=== PATIENT | male | born 1935 | race Caucasian/White ===

== ENCOUNTER 2017-03-06 23:03 | Emergency (ER) | payer OTHER, MEDICARE ==
[~2017-03-06 23:03] MED LIST: ASPIRIN ADULT L81 M1 PO; COZAAR100 MG PO; DONEPEZIL HCL5 M1 PO; FISH OIL1200 MG; HYDROCHLOROTHIA25 MG PO; KEFLEX750 MG PO; MULTIPLE VITAMIN PO; NAMENDA5 MG PO; NORCO1 TA1 PO; PLAVIX75 MG PO; STOOL SOFTENER1 TA1; TAMSULOSIN HCL0.4 MG PO; VISTARIL25 MG PO; VITAMIN D-31000 UNIT PO
--- NOTE | 2017-03-07 02:30 | ED ORDER SUMMARY ---
..... Patient: MOR WRIGHT OrderSheet [facility] VisitID: [id number] [place] [address] 81y, M Registration Date/Time: 03/06/2017 ORDER SHEET Weight: 88.4 kg (stated) Allergies: Azithromycin GENERAL ORDERS: CBC w Diff Urgent (01:03/07/2017 Lemuel Pierson) (Ack 1:05 Maricruz) (1:14 Miguelito R.N.) CMP Urgent (01:03/07/2017 Lemuel Pierson) (Ack 1:05 Maricruz) (1:14 Miguelito R.N.) UA-Culture if indicated Urgent (:03/07/2017 Lemuel Pierson) (Ack 1:05 Maricruz) (1:14 Miguelito R.N.) Amylase Urgent (01:03/07/2017 Lemuel Pierson) (Ack 1:05 Maricruz) (1:14 Yadielier R.N.) Lipase Urgent (01:03/07/2017 Lemuel Pierson) (Ack 1:05 Maricruz) (1:14 Miguelito R.N.) Abdomen 1V Urgent (02:12 03/07/2017 Lemuel Pierson) (Ack 2:14 Maricruz) (2:30 GUnger) MEDICATION ORDERS: IV FLUIDS: IV Saline Lock (:03/07/2017 Lemuel Pierson) (Ack 1:01 Miguelito R.N.) ORDER SHEET NOTES: [Electronically signed by Janette Sellers R.N. (02:43 03/07/2017)] [Electronically signed by Koffi Solis Dr. (05:54 03/08/2017)] [Electronically locked/signed by Janette Sellers R.N. (02:43 03/07/2017)]
--- NOTE | 2017-03-07 02:30 | ED NURSING NOTES ---
Clinical Report - Nurses [place] [place] [address] 03/06/2017 23:03 Patient: MOR WRIGHT TRIAGE Triage time 23:26. Chief Complaint: (Abdominal pressure and increasing back pain). --23:41 Jorge Luis Rojas R.N. 23:26 03/06/17. BP: 132. HR: 79. RR: 14. O2 saturation: 99%. Temp: 98.2 F. --23:41 Jorge Luis Rojas R.N. Weight: 88.4 kg stated. Height/Length: 68 inches Per Patient. BMI: 29.6. --00:56 Janette Sellers R.N. Medications Losartan Potassium Oral (Tablet 100 mg) 1 tablet, daily. --23:29 Janette Sellers R.N. Hydrochlorothiazide Oral (Tablet 25 mg) 1 tablet, daily. --23:30 Janette Sellers R.N. AmLODIPine Besylate Oral (Tablet 10 mg) 1 tablet, daily. --23:30 Janette Sellers R.N. Plavix Oral 75 mg, daily. --23:31 Janette Sellers R.N. Vitamin D Oral (Capsule 1000 unit) 1 capsule, daily. --23:32 Janette Sellers R.N. Multi Vitamin Mens Oral. --23:32 Jorge Luis Rojas R.N. Fish Oil Oral. --23:33 Jorge Luis Rojas R.N. Atorvastatin Calcium Oral (Tablet 80 mg) 1 tablet, daily. --23:33 Janette Sellers R.N. Flomax Oral (Capsule 0.4 mg) 1 capsule, daily. --23:33 Janette Sellers R.N. Donepezil HCl Oral (Tablet 5 mg) 1/2 tablet, daily. --23:33 Janette Sellers R.N. Namenda Oral (Tablet 5 mg) 1 tablet, 2x a day. --23:33 Janette Sellers R.NNiles PriLOSEC Oral 10 mg, daily. --00:55 Janette Sellers R.N. The following entry was struck and corrected by Janette Sellers R.N., 00:54 (03/07/17) Reason for correction - other(correction). <<[facility] ENTRY-- Namenda Oral. --23:33 Jorge Luis Rojas R.N. --END STRIKE>> The following entry was struck and corrected by Janette Sellers R.N., 00:54 (03/07/17) Reason for correction - other(correction). <<[facility] ENTRY-- Donepezil HCl Oral. --23:33 Jorge Luis Rojas R.N. --END STRIKE>> The following entry was struck and corrected by Janette Sellers R.N., 00:54 (03/07/17) Reason for correction - other(correction). <<[facility] ENTRY-- Flomax Oral. --23:33 Jorge Luis Rojas R.N. --END STRIKE>> The following entry was struck and corrected by Janette Sellers R.N., 00:53 (03/07/17) Reason for correction - other(correction). <<[facility] ENTRY-- Atorvastatin Calcium Oral. --23:33 Jorge Luis Rojas R.N. --END STRIKE>> The following entry was struck and corrected by Janette Sellers RNilesN., 00:53 (03/07/17) Reason for correction - other(correction). <<[facility] ENTRY-- Vitamin D Oral. --23:32 Jorge Luis Rojas R.N. --END STRIKE>> The following entry was struck and corrected by Janette Sellers R.N., 00:53 (03/07/17) Reason for correction - other(correction). <<[facility] ENTRY-- Plavix Oral. --23:31 Jorge Luis Rojas R.N. --END STRIKE>> The following entry was struck and corrected by Janette Sellers R.N., 00:53 (03/07/17) Reason for correction - other(correction). <<[facility] ENTRY-- AmLODIPine Besylate Oral. --23:30 Jorge Luis Rojas R.N. --END STRIKE>> The following entry was struck and corrected by Janette Sellers R.N., 00:53 (03/07/17) Reason for correction - other(correction). <<[facility] ENTRY-- Hydrochlorothiazide Oral. --23:30 Jorge Luis Rojas R.N. --END STRIKE>> The following entry was struck by Janette Sellers R.N., 00:52 (03/07/17) Reason - other(pt stopped taking). <<[facility] ENTRY-- Aspirin Oral. --23:29 Jorge Luis Rojas R.N. --END STRIKE>> The following entry was struck and corrected by Janette Sellers R.N., 00:52 (03/07/17) Reason for correction - other(correction). <<[facility] ENTRY-- Losartan Potassium Oral. --23:29 Jorge Luis Rojas R.N. --END STRIKE>>. Allergies Azithromycin. --23:40 Jorge Luis Rojas R.N. History Arrived by private vehicle. Historian: spouse. Accompanied by family. This started today. Onset. (7 hours). 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 PAST MEDICAL HX: Hypertension (7 years). ( History CVA 2009, BPH, hernia repair). SOCIAL HX: Former smoker, end date 1958. NUTRITIONAL RISK ASSESSMENT: The nutritional risk assessment revealed no deficiencies. LEARNING NEEDS ASSESSMENT: The learning needs assessment revealed no barriers. FALL RISK ASSESSMENT: Fall risk assessment completed. Risk factors identified include patient age greater than 65 years and impairment of hearing. --23:41 Jorge Luis Rojas R.N. PAST MEDICAL HX: Immunizations: up-to-date. SOCIAL HX: Never smoker. No alcohol use or drug use. --00:56 Janette Sellers R.N. PROBLEMS: Gastroesophageal Reflux Disease. CVA - Cerebrovascular Accident. --00:55 Janette Sellers R.N. ADDITIONAL SURGERIES: Hernia Repair. --00:55 Janette Sellers R.N. Interventions ID band on patient. --23:41 Jorge Luis Rojas R.N. PHYSICAL ASSESSMENT Ambulatory to room. Patient gowned. GENERAL / NEURO / PSYCH: Alert. Oriented X 4. Appears in no acute distress. HEENT: Mucous membranes are pink. CVS: Capillary refill less than 2 seconds. SKIN: Skin is warm and dry. --00:56 Janette Sellers R.N. NURSING PROGRESS NOTES Head of bed elevated. Two patient identifiers checked. Call light placed in reach. Side rails up x 1. Bed placed in lowest position. Brakes of bed on. --00:56 Janette Sellers R.N. Patient ready for evaluation- chart flagged. --00:56 Janette Sellers R.N. 01:00. Patient ID band checked for patient name and birthdate: patient confirmed urine collected with return of yellow-colored clear urine; sample sent to lab. Specimen labeled in the presence of the patient. --01:14 Janette Sellers R.N. 01:14 03/07/2017 Site #1 started via IV in the right antecubital space with an 20g angiocath, with aseptic technique and good blood return; one attempt. Blood drawn: rainbow set. Labeled in the presence of the patient and sent to the lab. Saline lock flushed with 10 mL saline. --01:14 Janette Sellers R.N. 02:35 03/07/2017 Site #1 removed upon discharge. Catheter intact. Manual pressure and bandage applied. --02:41 Janette Sellers R.N. DISPOSITION / DISCHARGE Condition at departure: stable. No learning barriers present. Discharge instructions provided and reviewed with the patient. Reviewed medication(s) side effects, precautions, dosing and course information. Prescription(s) given to the patient (Miralax). Patient verbalized understanding. Written instructions provided in Romanian. The patient was discharged home and accompanied by spouse. He left the Emergency Department ambulatory and via private vehicle. Spouse driving. --02:42 Janette Sellers R.N. 02:42 03/07/17. BP: 137/67. HR: 82. RR: 15. O2 saturation: 97% on room air. Temp: deferred. Beckman-Navarro pain scale: 10/05. --02:42 Janette Sellers R.N. Locked/Released at 03/07/2017 2:43 by Janette Sellers R.N.
--- NOTE | 2017-03-07 02:30 | ED ORDER SUMMARY ---
..... Patient: MOR WRIGHT OrderSheet [facility] VisitID: [id number] [place] [address] 81y, M Registration Date/Time: 03/06/2017 ORDER SHEET Weight: 88.4 kg (stated) Allergies: Azithromycin GENERAL ORDERS: CBC w Diff Urgent (01:03/07/2017 Lemuel Pierson) (Ack 1:05 Maricruz) (1:14 Miguelito R.N.) CMP Urgent (01:03/07/2017 Lemuel Pierson) (Ack 1:05 Maricruz) (1:14 Miguelito R.N.) UA-Culture if indicated Urgent (:03/07/2017 Lemuel Pierson) (Ack 1:05 Maricruz) (1:14 Miguelito R.N.) Amylase Urgent (01:03/07/2017 Lemuel Pierson) (Ack 1:05 Maricruz) (1:14 Yadielier R.N.) Lipase Urgent (01:03/07/2017 Lemuel Pierson) (Ack 1:05 Maricruz) (1:14 Miguelito R.N.) Abdomen 1V Urgent (02:12 03/07/2017 Lemuel Pierson) (Ack 2:14 Maricruz) (2:30 GUnger) MEDICATION ORDERS: IV FLUIDS: IV Saline Lock (:03/07/2017 Lemuel Pierson) (Ack 1:01 Miguelito R.N.) ORDER SHEET NOTES: [Electronically signed by Janette Sellers R.N. (02:43 03/07/2017)] [Electronically signed by Koffi Solis Dr. (05:54 03/08/2017)] [Electronically locked/signed by Janette Sellers R.N. (02:43 03/07/2017)]
--- NOTE | 2017-03-07 02:30 | ED CLINICAL REPORT ---
Clinical Report - Physicians/Mid Levels [facility] [address] [place] [address] 03/06/2017 23:03 Patient: MOR WRIGHT Time Seen: 00:19; initial patient contact. Arrived- By private vehicle. Historian- patient. HISTORY OF PRESENT ILLNESS Chief Complaint: ABDOMINAL PAIN. At its maximum, severity described as mild. When seen in the E.D., severity described as mild. Modifying factors. Not worsened by anything. Not relieved by anything. It is described as cramping. No radiation. It is described as generalized in location. This started yesterday and is still present. The patient has had nausea and loss of appetite. No vomiting or diarrhea. Similar symptoms previously: None. Recent medical care: Not recently seen/assessed. REVIEW OF SYSTEMS The patient has had constipation. No fever or chills. All systems otherwise negative, except as recorded above. PAST HISTORY Gastroesophageal Reflux Disease. CVA - Cerebrovascular Accident. ADDITIONAL SURGERIES: Hernia Repair. Medications: PriLOSEC Oral 10 mg, daily. Namenda Oral (Tablet 5 mg) 1 tablet, 2x a day. Donepezil HCl Oral (Tablet 5 mg) 1/2 tablet, daily. Flomax Oral (Capsule 0.4 mg) 1 capsule, daily. Atorvastatin Calcium Oral (Tablet 80 mg) 1 tablet, daily. Fish Oil Oral. Multi Vitamin Mens Oral. Vitamin D Oral (Capsule 1000 unit) 1 capsule, daily. Plavix Oral 75 mg, daily. AmLODIPine Besylate Oral (Tablet 10 mg) 1 tablet, daily. Hydrochlorothiazide Oral (Tablet 25 mg) 1 tablet, daily. Losartan Potassium Oral (Tablet 100 mg) 1 tablet, daily. Allergies: Azithromycin. SOCIAL HISTORY Former smoker. ADDITIONAL NOTES The nursing notes have been reviewed. PHYSICAL EXAM Vital Signs: 03/06/2017 23:26 BP: 132. HR: 79. RR: 14. O2 saturation: 99%. Temp: 98.2 F. Have been reviewed as normal. Appearance: Alert. Oriented X3. No acute distress. ENT: Pharynx normal. CVS: Normal heart rate and rhythm. Heart sounds normal. Respiratory: No respiratory distress. Breath sounds normal. Abdomen: Soft and nontender. Bowel sounds normal. No organomegaly. No mass. Distention with tympany to percussion and dullness to percussion. Back: Normal inspection. No CVA tenderness. Skin: Normal skin color. Extremities: No lower extremity edema. LABS, X-RAYS, AND EKG KUB: Increased stool present. Views: erect AP. Technique: good. The X-rays were independently viewed by me and interpreted contemporaneously by me. Prior films were not available for comparison. Laboratory Tests: UA-Culture if indicated: (MELANY: 03/07/2017 00:55) ( [facility] [place]:13) Final results Test Result Flag Units (Reference) URINE COLOR YELLOW URINE APPEARANCE CLEAR URINE GLUCOSE NEGATIVE (NEGATIVE) URINE BILIRUBIN NEGATIVE (NEGATIVE) URINE KETONE NEGATIVE (NEGATIVE) URINE SPECIFIC GRAVITY 1.015 (1.010-1.030) URINE PH 6.0 (5.0-8.0) URINE PROTEIN NEGATIVE (NEGATIVE) URINE UROBILINOGEN 0.2 EU/dL (0.2-1.0) URINE NITRITE NEGATIVE (NEGATIVE) URINE BLOOD NEGATIVE (NEGATIVE) URINE LEUK ESTERASE NEGATIVE (NEGATIVE) URINE RBC 0-1 rbc/hpf (0-1) URINE WBC 0-1 wbc/hpf (0-1) URINE EPITHELIAL CELLS 0-1 EPI/hpf (0-5) URINE BACTERIA NONE SEEN (NONE SEEN) URINE COMMENT CULT NOT INDICATED URINE CULTURES ARE SET-UP BASED ON THE FOLLOWING CRITERIA:POSITIVE NITRITEPOSITIVE LEUKOCYTE ESTERASEGREATER THAN 10 WHITE BLOOD CELLSMODERATE (2+) OR GREATER BACTERIA CBC w Diff: (MELANY: 03/07/2017 01:10) ( [facility] [place] 03/07/[place] 01:17) Final results Test Result Flag Units (Reference) WHITE BLOOD COUNT 9.6 K/uL (4.5-11.5) RED BLOOD COUNT 4.47 L M/uL (4.50-5.90) HEMOGLOBIN 13.9 gm/dL (13.5-17.5) HEMATOCRIT 41.1 % (41.0-53.0) MEAN CELL VOLUME 92 fL (80-100) MEAN CORPUSCULAR HGB 31 pg (26-34) MEAN CORPUSCULAR HGB CONC 34 g/dL (31-37) RED CELL DISTRIBUTION WIDTH 13.2 % (11.6-14.8) PLATELET COUNT 155 K/uL (150-400) NEUTROPHIL % 88.1 H % (50-75) LYMPH % 8.2 L % (25-40) MONO % 2.7 L % (3-14) EOSINOPHIL % 0.7 % (0-4) BASOPHIL % 0.3 % (0-2) CMP: (MELANY: 03/07/2017 01:10) ( [place] 03/07/2017 01:31) Final results Test Result Flag Units (Reference) GLUCOSE 161 H mg/dL (70-110) BUN 27 H mg/dL (7-18) CREATININE 2.0 H mg/dL (0.6-1.3) Estimated GFR 34.25 mL/min Estimated GFR- 41.51 mL/min Note: Persistent reduction over 3 months in eGFR<60 mL/min/1.73 m2 defines CKD. Patients with eGFR values>=60 mL/min/1.73 m2 may also have CKD if evidence ofpersistent proteinuria. Additional information may be foundat www.kidney.org. SODIUM 144 mmol/L (136-145) POTASSIUM 3.5 mmol/L (3.5-5.1) CHLORIDE 106 mmol/L (98-107) CARBON DIOXIDE 27 mmol/L (21-32) CALCIUM 8.7 mg/dL (8.5-10.1) TOTAL PROTEIN 7.6 g/dL (6.4-8.2) ALBUMIN 4.2 g/dL (3.3-5.0) BILIRUBIN, TOTAL 0.9 mg/dL (0.0-1.0) ALKALINE PHOSPHATASE 103 U/L (46-116) AST (SGOT) 22 U/L (15-37) ALT (SGPT) 26 U/L (12-78) LIPASE 532 H U/L (73-393) AMYLASE 87 U/L (25-115) . PROGRESS AND PROCEDURES Course of Care: Lipase mildly elevated, no S/S of pancreatitis. Disposition: Discharged home in good condition. Condition: good. CLINICAL IMPRESSION Constipation INSTRUCTIONS (Fleet's enema). Your Current Medications: CONTINUE TAKING THE FOLLOWING MEDICATIONS: AmLODIPine Besylate Oral : Tablet 10 mg, 1 tablet daily. Atorvastatin Calcium Oral : Tablet 80 mg, 1 tablet daily. Donepezil HCl Oral : Tablet 5 mg, 1/2 tablet daily. Fish Oil Oral. Flomax Oral : Capsule 0.4 mg, 1 capsule daily. Hydrochlorothiazide Oral : Tablet 25 mg, 1 tablet daily. Losartan Potassium Oral : Tablet 100 mg, 1 tablet daily. Multi Vitamin Mens Oral. Namenda Oral : Tablet 5 mg, 1 tablet 2x a day. Plavix Oral : 75 mg daily. PriLOSEC Oral : 10 mg daily. Vitamin D Oral : Capsule 1000 unit, 1 capsule daily. Prescription Medications: Miralax: take 1 package mixed in 8 ounces water or juice as needed for constipation. Dispense one (1) twelve pack. No refills. Substitution is permissible. Follow-up: Follow up with your doctor in about four days if not better. Call for an appointment. Blood pressure screening was not performed during this visit because the patient has an active diagnosis of hypertension. (Electronically signed by Koffi Solis Dr. 03/08/2017 5:54)
--- NOTE | 2017-03-07 02:30 | ED NURSING NOTES ---
Clinical Report - Nurses [place] [place] [place] [address] 03/06/2017 23:03 Patient: MOR WRIGHT TRIAGE Triage time 23:26. Chief Complaint: (Abdominal pressure and increasing back pain). --23:41 Jorge Luis Rojas R.N. 23:26 03/06/17. BP: 132. HR: 79. RR: 14. O2 saturation: 99%. Temp: 98.2 F. --23:41 Jorge Luis Rojas R.N. Weight: 88.4 kg stated. Height/Length: 68 inches Per Patient. BMI: 29.6. --00:56 Janette Sellers R.N. Medications Losartan Potassium Oral (Tablet 100 mg) 1 tablet, daily. --23:29 Janette Sellers R.N. Hydrochlorothiazide Oral (Tablet 25 mg) 1 tablet, daily. --23:30 Janette Sellers R.N. AmLODIPine Besylate Oral (Tablet 10 mg) 1 tablet, daily. --23:30 Janette Sellers R.N. Plavix Oral 75 mg, daily. --23:31 Janette Sellers R.N. Vitamin D Oral (Capsule 1000 unit) 1 capsule, daily. --23:32 Janette Sellers R.N. Multi Vitamin Mens Oral. --23:32 Jorge Luis Rojas R.N. Fish Oil Oral. --23:33 Jorge Luis Rojas R.N. Atorvastatin Calcium Oral (Tablet 80 mg) 1 tablet, daily. --23:33 Janette Sellers R.N. Flomax Oral (Capsule 0.4 mg) 1 capsule, daily. --23:33 Janette Sellres R.N. Donepezil HCl Oral (Tablet 5 mg) 1/2 tablet, daily. --23:33 Janette Sellers R.N. Namenda Oral (Tablet 5 mg) 1 tablet, 2x a day. --23:33 Janette Sellers R.NNiles PriLOSEC Oral 10 mg, daily. --00:55 Janette Sellers R.N. The following entry was struck and corrected by Janette Sellers R.N., 00:54 (03/07/17) Reason for correction - other(correction). <<[facility] ENTRY-- Namenda Oral. --23:33 Jorge Luis Rojas R.N. --END STRIKE>> The following entry was struck and corrected by Janette Sellers R.N., 00:54 (03/07/17) Reason for correction - other(correction). <<[facility] ENTRY-- Donepezil HCl Oral. --23:33 Jorge Luis Rojas R.N. --END STRIKE>> The following entry was struck and corrected by Janette Sellers R.N., 00:54 (03/07/17) Reason for correction - other(correction). <<[facility] ENTRY-- Flomax Oral. --23:33 Jorge Luis Rojas R.N. --END STRIKE>> The following entry was struck and corrected by Janette Sellers R.N., 00:53 (03/07/17) Reason for correction - other(correction). <<[facility] ENTRY-- Atorvastatin Calcium Oral. --23:33 Jorge Luis Rojas R.N. --END STRIKE>> The following entry was struck and corrected by Janette Sellers RNilesN., 00:53 (03/07/17) Reason for correction - other(correction). <<[facility] ENTRY-- Vitamin D Oral. --23:32 Jorge Luis Rojas R.N. --END STRIKE>> The following entry was struck and corrected by Janette Sellers R.N., 00:53 (03/07/17) Reason for correction - other(correction). <<[facility] ENTRY-- Plavix Oral. --23:31 Jorge Luis Rojas R.N. --END STRIKE>> The following entry was struck and corrected by Janette Sellers R.N., 00:53 (03/07/17) Reason for correction - other(correction). <<[facility] ENTRY-- AmLODIPine Besylate Oral. --23:30 Jorge Luis Rojas R.N. --END STRIKE>> The following entry was struck and corrected by Janette Sellers R.N., 00:53 (03/07/17) Reason for correction - other(correction). <<[facility] ENTRY-- Hydrochlorothiazide Oral. --23:30 Jorge Luis Rojas R.N. --END STRIKE>> The following entry was struck by Janette Sellers R.N., 00:52 (03/07/17) Reason - other(pt stopped taking). <<[facility] ENTRY-- Aspirin Oral. --23:29 Jorge Luis Rojas R.N. --END STRIKE>> The following entry was struck and corrected by Janette Sellers R.N., 00:52 (03/07/17) Reason for correction - other(correction). <<[facility] ENTRY-- Losartan Potassium Oral. --23:29 Jorge Luis Rojas R.N. --END STRIKE>>. Allergies Azithromycin. --23:40 Jorge Luis Rojas R.N. History Arrived by private vehicle. Historian: spouse. Accompanied by family. This started today. Onset. (7 hours). 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 PAST MEDICAL HX: Hypertension (7 years). ( History CVA 2009, BPH, hernia repair). SOCIAL HX: Former smoker, end date 1958. NUTRITIONAL RISK ASSESSMENT: The nutritional risk assessment revealed no deficiencies. LEARNING NEEDS ASSESSMENT: The learning needs assessment revealed no barriers. FALL RISK ASSESSMENT: Fall risk assessment completed. Risk factors identified include patient age greater than 65 years and impairment of hearing. --23:41 Jorge Luis Rojas R.N. PAST MEDICAL HX: Immunizations: up-to-date. SOCIAL HX: Never smoker. No alcohol use or drug use. --00:56 Janette Sellers R.N. PROBLEMS: Gastroesophageal Reflux Disease. CVA - Cerebrovascular Accident. --00:55 Janette Sellers R.N. ADDITIONAL SURGERIES: Hernia Repair. --00:55 Janette Sellers R.N. Interventions ID band on patient. --23:41 Jorge Luis Rojas R.N. PHYSICAL ASSESSMENT Ambulatory to room. Patient gowned. GENERAL / NEURO / PSYCH: Alert. Oriented X 4. Appears in no acute distress. HEENT: Mucous membranes are pink. CVS: Capillary refill less than 2 seconds. SKIN: Skin is warm and dry. --00:56 Janette Sellers R.N. NURSING PROGRESS NOTES Head of bed elevated. Two patient identifiers checked. Call light placed in reach. Side rails up x 1. Bed placed in lowest position. Brakes of bed on. --00:56 Janette Sellers R.N. Patient ready for evaluation- chart flagged. --00:56 Janette Sellers R.N. 01:00. Patient ID band checked for patient name and birthdate: patient confirmed urine collected with return of yellow-colored clear urine; sample sent to lab. Specimen labeled in the presence of the patient. --01:14 Janette Sellers R.N. 01:14 03/07/2017 Site #1 started via IV in the right antecubital space with an 20g angiocath, with aseptic technique and good blood return; one attempt. Blood drawn: rainbow set. Labeled in the presence of the patient and sent to the lab. Saline lock flushed with 10 mL saline. --01:14 Janette Sellers R.N. 02:35 03/07/2017 Site #1 removed upon discharge. Catheter intact. Manual pressure and bandage applied. --02:41 Janette Sellers R.N. DISPOSITION / DISCHARGE Condition at departure: stable. No learning barriers present. Discharge instructions provided and reviewed with the patient. Reviewed medication(s) side effects, precautions, dosing and course information. Prescription(s) given to the patient (Miralax). Patient verbalized understanding. Written instructions provided in Guinean. The patient was discharged home and accompanied by spouse. He left the Emergency Department ambulatory and via private vehicle. Spouse driving. --02:42 Janette Sellers R.N. 02:42 03/07/17. BP: 137/67. HR: 82. RR: 15. O2 saturation: 97% on room air. Temp: deferred. Beckman-Navarro pain scale: 10/05. --02:42 Janette Sellers R.N. Locked/Released at 03/07/2017 2:43 by Janette Sellers R.N.
--- NOTE | 2017-03-07 06:50 | DIAGNOSTIC IMAGING REPORT ---
PROCEDURE: XR ABDOMEN 1 VIEW INDICATION: ABDOMINAL DISTENTION TECHNIQUE: Single view upright abdomen. COMPARISON: None. FINDINGS: No free intraperitoneal air. Nonspecific, nonobstructive bowel gas pattern. Mildly increased amount of proximal colonic stool. Questionable left lower pole intrarenal calcification measuring approximately 6 mm. Mild degenerative disc and endplate changes throughout the lumbar spine. No unusual mass effect. IMPRESSION: 1. Increased amount of proximal colon stool. 2 possible left intrarenal calcification. 3. Nonspecific bowel gas pattern. Distended fluid-filled loops of small bowel cannot be excluded.
--- NOTE | 2017-03-08 05:54 | ED DISCHARGE INSTRUCTIONS ---
Patient: MOR WRIGHT General Instructions [facility] VisitID: [id number] [place] [address] 81y, M Registration Date/Time: 03/06/2017 Constipation INSTRUCTIONS (Fleet's enema). Your Current Medications: CONTINUE TAKING THE FOLLOWING MEDICATIONS: AmLODIPine Besylate Oral : Tablet 10 mg, 1 tablet daily. Atorvastatin Calcium Oral : Tablet 80 mg, 1 tablet daily. Donepezil HCl Oral : Tablet 5 mg, 1/2 tablet daily. Fish Oil Oral. Flomax Oral : Capsule 0.4 mg, 1 capsule daily. Hydrochlorothiazide Oral : Tablet 25 mg, 1 tablet daily. Losartan Potassium Oral : Tablet 100 mg, 1 tablet daily. Multi Vitamin Mens Oral. Namenda Oral : Tablet 5 mg, 1 tablet 2x a day. Plavix Oral : 75 mg daily. PriLOSEC Oral : 10 mg daily. Vitamin D Oral : Capsule 1000 unit, 1 capsule daily. Prescription Medications: Miralax: take 1 package mixed in 8 ounces water or juice as needed for constipation. Dispense one (1) twelve pack. No refills. Substitution is permissible. Follow-up: Follow up with your doctor in about four days if not better. Call for an appointment. Blood pressure screening was not performed during this visit because the patient has an active diagnosis of hypertension. ADDITIONAL INFORMATION Constipation (Adult) Constipation is bowel movements that are less frequent than usual. Stools often become very hard and difficult to pass. This may lead to abdominal pain and bloating. It may also cause painful bowel movements. Constipation may be due to a diet thats low in fiber. Some medications, especially pain medications, can also cause it. Constipation may be treated with enemas, suppositories, laxatives or stool softeners. Your doctor will advise you which will work best for you. Follow the advice below to help avoid this problem in the future. Home Care Medication: Take any medicines as directed. Some laxatives are safe only for occasional use. Others can be taken on a regular basis. Talk to your doctor or pharmacist if you have questions. General Care: Prescription pain medications can cause constipation. If you are prescribed pain medications, ask the doctor whether you should also take a stool softener. A diet high in fiber with plenty of fluids helps to maintain regular, soft bowel movements. The following foods are good sources of dietary fiber: Cereals and breads: Whole grain cereal with bran, oatmeal, rolled oats, whole grain breads Fruits: All fruits (fresh and dried), raisins, prunes, apricots, berries, figs Vegetables: Any fresh vegetables, especially peas, broccoli, brussels sprouts, winter squash, green beans, cauliflower, lora beans, carrots Other: Popcorn, brown rice Drink plenty of water when you increase the amount of fiber you eat. Follow Up with your doctor or return to this facility if symptoms do not improve in the next few days. You may require further tests or a referral to a specialist. Get Prompt Medical Attention if any of the following occur: Fever over 100.4F (38C) Failure to resume normal bowel movements Increasing abdominal or back pain Nausea or vomiting Abdominal swelling Blood in the stool Weakness, dizziness or fainting Unexpected vaginal bleeding You have been given the following additional information: Constipation (Adult) (Electronically signed by Koffi Solis Dr. 03/08/2017 5:54)
--- NOTE | 2017-03-08 05:54 | ED MAR SUMMARY ---
..... Medication Administration Record [facility] [address] [place], [place] [id number] Patient: MOR WRIGHT Rafy Visit ID: [id number] 81y, M Weight: 88.4 kg Height/Length: 68 in BMI: 29.6 ALLERGIES: Azithromycin
--- NOTE | 2017-03-08 05:54 | ED MED RECONCILIATION SUMMARY ---
Patient: MOR WRIGHT Medication Reconciliation Report [facility] VisitID: [id number] [place] [address] 81y, M Registration Date/Time: 03/06/2017 Weight: 88.4 kg Height/Length: 68 in. BMI: 29.6 ALLERGIES: Azithromycin The patient's Home Medications are listed below: CONTINUE TAKING THE FOLLOWING MEDICATIONS: AmLODIPine Besylate Oral (10 mg) 1 tablet, daily Atorvastatin Calcium Oral (80 mg) 1 tablet, daily Donepezil HCl Oral (5 mg) 1/2 tablet, daily Fish Oil Oral Flomax Oral (0.4 mg) 1 capsule, daily Hydrochlorothiazide Oral (25 mg) 1 tablet, daily Losartan Potassium Oral (100 mg) 1 tablet, daily Multi Vitamin Mens Oral Namenda Oral (5 mg) 1 tablet, 2x a day Plavix Oral 75 mg, daily PriLOSEC Oral 10 mg, daily Vitamin D Oral (1000 unit) 1 capsule, daily The source(s) of the original Home Medication information: Not obtained. The following Medications were given to the patient in the Emergency Department: None. The following Medications were prescribed to the patient: Miralax: take 1 package mixed in 8 ounces water or juice as needed for constipation. Dispense one (1) twelve pack. No refills. Substitution is permissible. -- Koffi Solis Dr.
--- NOTE | 2017-03-08 05:54 | ED MED RECONCILIATION SUMMARY ---
Patient: MOR WRIGHT Medication Reconciliation Report [facility] VisitID: [id number] [address] [place] [address] 81y, M Registration Date/Time: 03/06/2017 Weight: 88.4 kg Height/Length: 68 in. BMI: 29.6 ALLERGIES: Azithromycin The patient's Home Medications are listed below: CONTINUE TAKING THE FOLLOWING MEDICATIONS: AmLODIPine Besylate Oral (10 mg) 1 tablet, daily Atorvastatin Calcium Oral (80 mg) 1 tablet, daily Donepezil HCl Oral (5 mg) 1/2 tablet, daily Fish Oil Oral Flomax Oral (0.4 mg) 1 capsule, daily Hydrochlorothiazide Oral (25 mg) 1 tablet, daily Losartan Potassium Oral (100 mg) 1 tablet, daily Multi Vitamin Mens Oral Namenda Oral (5 mg) 1 tablet, 2x a day Plavix Oral 75 mg, daily PriLOSEC Oral 10 mg, daily Vitamin D Oral (1000 unit) 1 capsule, daily The source(s) of the original Home Medication information: Not obtained. The following Medications were given to the patient in the Emergency Department: None. The following Medications were prescribed to the patient: Miralax: take 1 package mixed in 8 ounces water or juice as needed for constipation. Dispense one (1) twelve pack. No refills. Substitution is permissible. -- Koffi Solis Dr.
--- NOTE | 2017-03-08 05:54 | ED MAR SUMMARY ---
..... Medication Administration Record [facility] [address] [place], [place] [id number] Patient: MOR WRIGHT Rafy Visit ID: [id number] 81y, M Weight: 88.4 kg Height/Length: 68 in BMI: 29.6 ALLERGIES: Azithromycin
== END 2017-03-07 02:39 | disposition home or self-care (01) ==
LOC: ED SRH 23:03
DX: K59.00 Constipation, unspecified (principal); K21.9 Gastro-esophageal reflux disease without esophagitis; Z79.02 Long term (current) use of antithrombotics/antiplatelets; Z79.899 Other long term (current) drug therapy; Z87.891 Personal history of nicotine dependence; Z88.1 Allergy status to other antibiotic agents
CPT/HCPCS: 90004; 90100; 92235; 92530; 95059